=== PATIENT | male | born 1945 | race Two or more races ===

== ENCOUNTER 2022-04-18 23:18 | Emergency (ER) | payer OTHER ==
[~2022-04-18] VITALS: Ht 167.6 cm; Wt 95.3 kg
[2022-04-18] MEDS ORDERED: KAPSPARGO SPRI100 MG PO (23:43)
[2022-04-18] MEDS ORDERED: COZAAR50 MG PO (23:44)
[2022-04-18] MEDS ORDERED: PLAVIX75 MG PO (23:44)
[2022-04-18] MEDS ORDERED: AMLODIPINE-OLM1 EAC2 PO (23:45)
[2022-04-18] MEDS ORDERED: GLUMETZA500 MG PO (23:45)
== END 2022-04-19 15:24 | disposition designated cancer center or children's hospital (05) ==
LOC: ER 23:18
DX: S00.03XA Contusion of scalp, initial encounter (principal); W18.30XA Fall on same level, unspecified, initial encounter; Y93.9 Activity, unspecified; Y92.59 Other trade areas as the place of occurrence of the external cause; Y99.9 Unspecified external cause status; I72.8 Aneurysm of other specified arteries; Z20.822 Contact with and (suspected) exposure to COVID-19

== ENCOUNTER → 2024-06-11 | Emergency (ER) | payer OTHER ==
[~2024-06-11] VITALS: Ht 165.1 cm; Wt 79.4 kg
[~2024-06-11] MED LIST: 0.9 % SODIUM CHLORIDE 500 ML IV ONE; ADULT LOW DOSE81 M1 PO; ALPRAZOLAM1 MG PO; AMLODIPINE-OLM1 EAC2 PO; CENTANY30 GM TOP; COZAAR50 MG PO; DOLOGESIC-DF 51 EACH PO; FAMOTIDINE20 MG PO; GLIPIZIDE ER10 MG PO; GLUMETZA500 MG PO; HYDROGEN PEROXIDE 473 ML BOTTLE TOP ONE; KAPSPARGO SPRI100 MG PO; KETOROLAC TROMETHAMINE 60 MG VIAL IM ONE; KETOROLAC TROMETHAMINE 60 MG VIAL IM STA; PLAVIX75 MG PO; ROSUVASTATIN CA10 MG PO; SERTRALINE HCL50 MG PO; TAMSULOSIN HCL0.4 MG PO; VITAMIN D21250 MCG PO
[2024-06-12 00:22] LABS: HEMATOCRIT 41.6 % (39.0-48.0); HEMOGLOBIN 13.5 g/dL (13-16.00); MEAN CORPUSCULAR HEMOGLOBIN 27.6 pg (27.00-32.0); MEAN CORPUSCULAR HGB CONC 32.5 g/dl (32.0-36.0); PLATELET COUNT 196 K/uL (150-450); RED BLOOD COUNT 4.89 M/uL (4.00-6.00); RED CELL DISTRIBUTION WIDTH 15.3 % (11.5-14.5)
[2024-06-12 01:26] LABS: ALBUMIN 3.3 gm/dL (3.4-5.0); BILIRUBIN TOTAL 0.5 mg/dL (0.3-1.2); CALCIUM 8.8 mg/dL (8.5-10.1); CREATININE SERUM 0.89 mg/dL (0.70-1.30); GFR 82.46; GLOBULINA 3.3 G/DL (2.4-3.5); POTASSIUM 3.42 mEq/L (3.5-5.1); TOTAL PROTEIN 6.6 gm/dL (6.4-8.2)
== END | disposition home or self-care (01) ==
LOC: ER 22:30
PROVIDERS: General Practice
DX: S09.8XXA Other specified injuries of head, initial encounter (principal); W19.XXXA Unspecified fall, initial encounter; Y93.89 Activity, other specified; Y92.89 Other specified places as the place of occurrence of the external cause; Y99.8 Other external cause status; I10 Essential (primary) hypertension; E11.9 Type 2 diabetes mellitus without complications; Z79.84 Long term (current) use of oral hypoglycemic drugs
CPT/HCPCS: 36415; 70450; 73521; 93005; 96365; 96366; 96372; 99284; J1885; J7042